=== PATIENT | male | born 1955 | race Caucasian/White ===

== ENCOUNTER → 2016-10-21 | Day surgery (SDC) | payer OTHER ==
[~2016-10-21] MED LIST: ALEVE220 M1 PO; BAYER ASPIRIN325 M1 PO; BUDEPRION XL300 MG PO; CARBIDOPA-LEVO1 EAC5 PO; EFFEXOR75 M1 PO; LORAZEPAM1 MG PO; PRO-AMATINE5 M2 PO; REMERON15 MG PO; SIMVASTATIN40 MG PO; WELLBUTRIN SR150 M1 PO; WELLBUTRIN SR150 MG PO; ZESTRIL5 MG PO
--- NOTE | ~2016-10-21 | OR ---
Unit #: [id number] #: [id number] Patient: CRISTHIAN BOOTHE [id number] [address] [place], [place] [address] [id number] O MR#: [id number] NAME: CRISTHIAN BOOTHE ROOM: Date of Procedure: 10/21/2016 Admission Date: 10/21/2016 Surgeon: Corey Plummer M.D. : 1955 Attending Physician: Corey Plummer M.D. Primary Care Physician: Ben Arechiga M.D. OPERATIVE REPORT PREOPERATIVE DIAGNOSES 1. Back pain. 2. Radiculopathy. 3. Postlumbar fusion. 4. Lumbar disk herniation. POSTOPERATIVE DIAGNOSES 1. Back pain. 2. Radiculopathy. 3. Postlumbar fusion. 4. Lumbar disk herniation. PROCEDURE PERFORMED Lumbar epidural steroid injection with intravenous sedation and fluoroscopic guidance for needle localization. INDICATIONS FOR PROCEDURE The patient is a 61-year-old male, who has had return of back and left hip pain. He is about 2-1/2-year status post L4, L5, S1 fusion with an excellent initial results. About 8 or so months ago, the patient had return of symptoms in his back and radiate afterwards his left hip and upper leg. Workup demonstrated what appears to be a new L3-L4 disk extrusion with degenerative retrolisthesis. The prior surgical level appears intact. There is significant anterior osteophytes as well throughout his lumbar spine. Based on his history, pathology, symptomatology, plan is for trial of epidural steroids. Risks and benefits of all has been reviewed. DESCRIPTION OF PROCEDURE The patient was placed in the seated position. Standard monitors were applied. 2 mg of Versed were given for sedation and anxiolysis, which were adequate. Vital signs remained stable. Sterile prep and drape then of the lumbar area was performed. The skin then at the L3-L4 level was localized with 1% lidocaine. An 18-gauge inDinero needle was then advanced via loss of resistance technique and fluoroscopic guidance in toward the epidural space. The patient did not complain of pain or paresthesia during needle advancement. After confirming proper positioning with fluoroscopy and radiographic contrast, a dose of 80 mg Depo-Medrol and 4 mL of 0.125% bupivacaine were deposited. The patient tolerated the procedure otherwise well and was discharged to the recovery room in stable condition. Unit #: [id number] #: [id number] Patient: CRISTHIAN BOOTHE Dictated by... Fernando Fleming/avila TD: 10/22/2016 02:49 JOB #: [id number] OPERATIVE REPORT Page 1 of 1 X Corey Plummer MD X PROCEDURE OPERATIVE NOTE
== END | disposition home or self-care (01) ==
LOC: CCSC 09:02
DX: M51.16 Intervertebral disc disorders with radiculopathy, lumbar region (principal); Z98.1 Arthrodesis status
CPT/HCPCS: J1040; J2250

== ENCOUNTER → 2016-10-28 | Day surgery (SDC) | payer OTHER ==
--- NOTE | ~2016-10-28 | OR ---
Unit #: [id number] #: [id number] Patient: CRISTHIAN BOOTHE [id number] [address] [place], [place] [address] [id number] O MR#: [id number] NAME: CRISTHIAN BOOTHE ROOM: Date of Procedure: 10/28/2016 Admission Date: 10/28/2016 Surgeon: Corey Plummer M.D. : 1955 Attending Physician: Corey Plummer M.D. Primary Care Physician: Ben Arechiga M.D. OPERATIVE REPORT PREOPERATIVE DIAGNOSES 1. Back pain. 2. Radiculopathy. 3. Herniated nucleus pulposus. 4. Postlumbar fusion. POSTOPERATIVE DIAGNOSIS 1. Back pain. 2. Radiculopathy. 3. Herniated nucleus pulposus. 4. Postlumbar fusion. PROCEDURE PERFORMED Lumbar epidural steroid injection and fluoroscopic guidance for needle localization. INDICATIONS FOR PROCEDURE The patient is a 61-year-old male, who had returned with significant worsening back and left sided lower extremity pain. The patient is status post L4-L5 and L5-S1 fusion, which he did fairly well over the last 8 months. He had significant worsening pain in the new distribution. Workup demonstrated a left L3-L4 extrusion and some degenerative retrolisthesis at the adjacent level to the fusion L3-L4. Workup also showed significant anterior spondylosis of all lower vertebral bodies. Initial epidural steroid injection done last week resulted in near resolution of the leg pain. He is still having some pain across his back towards his left hip. Based on good partial initial response, his continued symptoms, pathology, and available treatment options, we are going to proceed with a second injection today. DESCRIPTION OF PROCEDURE The patient was placed in a seated position. Standard monitors were applied. Sterile prep and drape of the lumbar area was performed. The skin then at the L3-L4 level was localized with 1% lidocaine. An 18-gauge Whip[employer] needle was then advanced via loss of resistance technique and fluoroscopic guidance in toward the epidural space. After confirming proper positioning with fluoroscopy and radiographic contrast, 80 mg of Depo-Medrol and 4 mL of 0.125% bupivacaine were deposited. The patient tolerated the procedure otherwise well and was discharged to the recovery room in stable condition. Dictated by... Unit #: [id number] #: [id number] Patient: CRISTHIAN BOOTHE Fernando FlemingP/avila TD: 10/29/2016 01:49 JOB #: [id number] CC: Rachel Aguayo OPERATIVE REPORT Page 1 of 1 X Corey Plummer MD X PROCEDURE OPERATIVE NOTE
== END | disposition home or self-care (01) ==
LOC: CCSC 08:53
DX: M51.16 Intervertebral disc disorders with radiculopathy, lumbar region (principal); Z98.1 Arthrodesis status
CPT/HCPCS: J1040; J2250

== ENCOUNTER → 2016-11-11 | Day surgery (SDC) | payer OTHER ==
--- NOTE | ~2016-11-11 | OR ---
Unit #: [id number] #: [id number] Patient: CRISTHIAN BOOTHE [id number] [address] [place], [place] [address] [id number] O MR#: [id number] NAME: CRISTHIAN BOOTHE. ROOM: Date of Procedure: 11/11/2016 Admission Date: 11/11/2016 Surgeon: Corey Plummer M.D. : 1955 Attending Physician: Corey Plummer M.D. Primary Care Physician: Ben Arechiga M.D. OPERATIVE REPORT PREOPERATIVE DIAGNOSES Back pain, radiculopathy, postlumbar fusion, degenerative disk disease. POSTOPERATIVE DIAGNOSES Back pain, radiculopathy, postlumbar fusion, degenerative disk disease. PROCEDURE PERFORMED Lumbar epidural steroid injection with intravenous sedation and fluoroscopic guidance for needle localization. INDICATIONS FOR PROCEDURE The patient is a 61-year-old male, he had worsening pain in his back, especially left lower extremity, left hip, and flank. He is status post L4, L5, S1 fusion. Workup showed the left-sided L3-L4 disk extrusion, and there is some degenerative retrolisthesis, also degenerative disk disease above this level. Decision was made to give a trial of epidural steroids after failing to settle with conservative treatment. Two were done at this point. The first which resolved his left lower extremity pain, but still had hip and flank pain. Second injection work to greatly helped that hip and flank pain as well. Leg is still doing better. He is still having more central back pain due to his other discogenic levels or to the fusion itself. We are going to proceed with a final injection at this point. He will follow back up with [facility] with Dr. Taveras and Dr. Guerrero if needed. DESCRIPTION OF PROCEDURE The patient was placed in a seated position. Standard monitors were applied. 2 mg of Versed were given for sedation and anxiolysis, which were adequate. Vital signs remained stable. Sterile prep and drape then of lumbar area was performed. The skin at the L3 level was localized with 1% lidocaine. An 18-gauge CardioGenicstead needle was then advanced via loss of resistance technique and fluoroscopic guidance in toward the epidural space. The patient did not complain of pain or paresthesia. After confirming proper positioning with fluoroscopy and radiographic contrast, 80 mg of Depo-Medrol and 4 mL of 0.125% bupivacaine were deposited. The patient tolerated the procedure otherwise well and was discharged to the recovery room in stable condition. Fluoroscopic picture did show good spread of the contrast significantly protuberant large anterior osteophytes throughout his mid lumbar spine. Unit #: [id number] #: [id number] Patient: CRISTHIAN BOOTHE Dictated by... Fernando Fleming/avila TD: 11/12/2016 00:27 JOB #: [id number] CC: Demetria Ervin PMitzy OPERATIVE REPORT Page 1 of 1 X Corey Plummer MD X PROCEDURE OPERATIVE NOTE
== END | disposition home or self-care (01) ==
LOC: CCSC 09:07
DX: M51.16 Intervertebral disc disorders with radiculopathy, lumbar region (principal)
CPT/HCPCS: J1040; J2250